=== PATIENT | male | born 1995 | race Caucasian/White ===

== ENCOUNTER 2020-12-09 17:16 | Emergency (ER) | payer SELFPAY ==
[2020-12-09 17:17] VITALS: BP 132/82; PULSE 96; RESP 20; TEMP 36.2; O2SAT 98; BMI 27.7
[2020-12-09 17:19] VITALS: BP 132/82; PULSE 96; RESP 20; TEMP 36.2; O2SAT 98
--- NOTE | 2020-12-09 18:35 | ED.VIS.DENTA ---
HPI History of Present Illness Chief Complaint: Dental Narrative Narrative: Patient presenting with right upper axillary pain. He states he has 1 tooth which is decayed. He has a dental appointment on Friday. He states that he is having increasing pain and swelling in this area. No difficulty breathing or swallowing. patient is not on any antibiotics. He said that he had chills earlier but otherwise does not feel ill. Patient has not had a fever. PFSH PFSH Home Medications amoxicillin-pot clavulanate [Augmentin] 1 tab PO BID #20 tab 12/09/20 [Rx Last Taken Unknown] naproxen [Naprosyn] 500 mg PO BID PRN #20 tab 12/09/20 [Rx Last Taken Unknown] Allergy/AdvReac Type Severity Reaction Status Date / Time No Known Allergies Allergy Verified 12/09/20 17:36 Social History Smoking Status: Unknown if ever smoked ROS ROS ED Constitutional Constitutional ED: Reports chills; Denies fever(s) Eyes Eyes: Denies blurry vision or change in vision ENT ENT ED: Reports other Details: Dental pain ; Denies rhinorrhea or sore throat Respiratory/Chest Respiratory/Chest: Denies cough or dyspnea Gastrointestinal Gastrointestinal: Denies abdominal pain or nausea Genitourinary Genitourinary ED: Denies dysuria or hematuria Musculoskeletal Musculoskeletal: Denies arthralgias or myalgias Integumentary Denies Abrasions or rash Neurologic Neurologic: Denies headache(s) or paresthesias EXAM Physical Exam Const Vital Signs: 12/09/20 17:17 12/09/20 17:19 Temperature 97.1 F L 97.1 F L Temperature Source Temporal Temporal Pulse Rate 96 96 Respiratory Rate 20 H 20 H Blood Pressure 132/82 H 132/82 H Blood Pressure Mean 98 98 Pulse Ox 98 98 Oxygen Delivery Method Room Air Room Air Positive well nourished General Appearance ED: NAD HEENT HEENT Narrative: Partially edentulous in the right upper maxillary teeth. There is one tooth which tender to percussion as well as very decayed. Facial swelling is adjacent to this. Negative for trauma Eyes PERRL and EOMs intact bilaterally Neck no lymphadenopathy and supple Resp normal respiratory effort and clear to auscultation bilaterally Cardio regular rate and regular rhythm Neuro oriented x3 Sensorium / Orientation: alert Psych mental status grossly normal Skin no rashes or lesions noted MDM MDM MDM Narrative Medical decision making narrative: Patient presenting with dental pain in the right upper maxillary area. He has 1 partially decayed tooth. He has a dentist appointment on Friday. He will be started on Augmentin and given oxycodone in the ED. Patient given Naprosyn for home. Patient given return precautions. Impression: 1. Dental infection Discharge Plan Triage Chief Complaint: Dental ED Provider: Oz Angulo Dx/Rx/DC Orders Instructions: Dental Abscess Prescriptions: New amoxicillin-pot clavulanate [Augmentin] 875-125 mg tablet 1 tab PO BID Qty: 20 RF: 0 naproxen [Naprosyn] 500 mg tablet 500 mg PO BID PRN (Reason: pain) Qty: 20 RF: 0 Primary Care Provider: NOT,DEFINED Referrals: NOT,DEFINED [Primary Care Provider] - Disposition Disposition: Home, Self Care
[2020-12-09] MEDS: Amox/Clavulanate 875 MG Tablet PO (18:52)
[2020-12-09] MEDS: oxyCODONE 5 MG Tablet PO (18:52)
[2020-12-09 18:54] VITALS: BP 129/74; PULSE 64; RESP 15; O2SAT 98
== END 2020-12-09 18:55 | disposition home or self-care (01) ==
LOC: ED 18:44
PROVIDERS: Emergency Provider Student in an Organized Health Care Education/Training Program
DX: K04.7 Periapical abscess without sinus (principal)
CPT/HCPCS: 99283